=== PATIENT | female | born 1955 ===

== ENCOUNTER 2017-08-22 17:13 | Observation (INO) | payer MEDICAID, OTHER ==
[2017-08-22 17:18] VITALS: BMI 32.2
[2017-08-22 18:04] LABS: BASO # 0.03 K/mm3 (0.0-2.0); BASO % 0.3 % (0.0-3.0); EOS # 0.1 (0.0-0.7); EOS % 1.5 % (1.5-5.0); GRAN # 6.01 (1.4-6.5); GRAN % 62.9 % (50.0-68.0); HEMOGLOBIN 12.9 g/dL (12.0-16.0); LYMPH # 2.9 (1.2-3.4); LYMPH % 30.8 % (22.0-35.0); MEAN CELL VOLUME 83.1 fl (80.0-105.0); MEAN CORPUSCULAR HEMOGLOBIN 27.3 pg (25.0-35.0); MEAN CORPUSCULAR HGB CONC 32.9 g/dl (31.0-37.0); MEAN PLATELET VOLUME 10.1 fl (7.0-11.0); MONO # 0.4 (0.1-0.6); MONO % 4.5 % (1.0-6.0); RBC 4.72 10^6/uL (3.5-6.1); RED CELL DISTRIBUTION WIDTH 13.3 % (11.5-14.5); WHITE BLOOD COUNT 9.6 10^3/ul (4.5-11.0)
[2017-08-22 18:17] LABS: ALB/GLOB RATIO 1.3 (1.1-1.8); ALBUMIN 4.5 g/dL (3.0-4.8); ALT/SGPT 41 U/L (7-56); AST/SGOT 34 U/L (14-36); BLOOD UREA NITROGEN 17 mg/dL (7-21); CALCIUM 10.3 mg/dL (8.4-10.5); GFR AFRICAN-AMERICAN > 60; GFR NON-AFRICAN AMERICAN > 60
[2017-08-22 18:29] LABS: TROPONIN I < 0.01 ng/mL
[2017-08-22 18:40] LABS: INR 0.96 (0.93-1.08); PARTIAL THROMBOPLASTIN TIME 28.8 Seconds (25.1-36.5); PROTHROMBIN TIME 10.9 SECONDS (9.4-12.5)
[2017-08-22 19:31] LABS: URINE BILIRUBIN NEGATIVE (NEGATIVE); URINE BLOOD NEGATIVE (NEGATIVE); URINE GLUCOSE (UA) NEGATIVE (NEGATIVE); URINE LEUKOCYTE ESTERASE SMALL Leu/uL (NEGATIVE); URINE NITRATE NEGATIVE (NEGATIVE); URINE PROTEIN NEGATIVE mg/dL (<30 mg/dL); URINE UROBILINOGEN 0.2 E.U./dL (<1 E.U./dL)
[2017-08-22 19:32] LABS: URINE APPEARANCE CLEAR (CLEAR); URINE COLOR STRAW (YELLOW)
--- NOTE | 2017-08-22 19:36 | ED PDOC ---
Arrival/HPI - General Chief Complaint: High Blood Pressure Time Seen by Provider: 08/22/17 17:38 Historian: Patient - History of Present Illness Narrative History of Present Illness (Text): 08/22/17 19:36 61yo female with PMHx of hypertension, Diabetes and hyperlipdemia who present with complaint of pressure like retro sternal chest pain since 1400. Reports chills and "not feeling fine". States she checked her BP at home and it was 150/ 90, which is high for her. also report headache and MENON. Notes that she is complaint with her medications. denies cough, recent URI, diaphoresis, LE edema , calf pain, dizziness, orthopnea, sick contact, nausea, vomiting, ripping/ tearing upper back pain. r Past Medical History - Provider Review Nursing Documentation Reviewed: Yes - Infectious Disease Hx of Infectious Diseases: None - Cardiac Hx Atrial Fibrillation: No Hx Congestive Heart Failure: No Hx Hypertension: Yes Hx Pacemaker: No - Pulmonary Hx Asthma: Yes Hx Chronic Obstructive Pulmonary Disease (COPD): No - Neurological Hx Seizures: No - HEENT Hx HEENT Disorder: No - Renal Hx Renal Disorder: No - Endocrine/Metabolic Hx Diabetes Mellitus Type 2: Yes - Hematological/Oncological Hx Blood Disorders: No - Integumentary Hx Dermatological Disorder: No - Musculoskeletal/Rheumatological Hx Arthritis: Yes (OSTEOARTHRITIS) Hx Osteoporosis: Yes - Gastrointestinal Hx Gastrointestinal Disorders: No - Genitourinary/Gynecological Hx Genitourinary Disorders: No - Psychiatric Hx Emotional Abuse: No Hx Physical Abuse: No Hx Substance Use: No - Surgical History Hx Coronary Artery Bypass Graft: No - Anesthesia Hx Anesthesia: Yes Hx Anesthesia Reactions: No - Suicidal Assessment Feels Threatened In Home Enviroment: No Family/Social History - Physician Review Nursing Documentation Reviewed: Yes Family/Social History: Unknown Family HX Smoking Status: Never Smoked Hx Alcohol Use: No Hx Substance Use: No Allergies/Home Meds Allergies/Adverse Reactions: Allergies No Known Allergies Allergy (Verified 05/05/16 21:58) Home Medications: Home Meds Medication Instructions Recorded Confirmed Alendronate Sodium [Binosto] 70 mg PO Q7D 05/17/16 08/22/17 Atorvastatin [Lipitor] 1 tab PO HS 08/22/17 08/22/17 Cholecalciferol (Vitamin D3) 1 cap PO DAILY 08/22/17 08/22/17 [Vitamin D3] Fluticasone Furoate [Arnuity 1 puff IH BID 08/22/17 08/22/17 Ellipta] Montelukast [Singulair] 1 tab PO HS 08/22/17 08/22/17 metFORMIN [glucOPHAGE] 1 tab PO BID 08/22/17 08/22/17 Review of Systems - Physician Review All systems were reviewed & negative as marked: Yes - Review of Systems Constitutional: Normal Eyes: Normal ENT: Normal Respiratory: Normal Cardiovascular: Chest Pain, MENON. absent: Palpitations, Edema, Calf Pain, Orthopnea Gastrointestinal: Normal Genitourinary Female: Normal Musculoskeletal: Normal Skin: Normal Neurological: Headache. absent: Dizziness, Focal Weakness, Gait Changes Endocrine: Normal Hemo/Lymphatic: Normal Psychiatric: Normal Physical Exam Vital Signs Reviewed: Yes Vital Signs Temp Pulse Resp BP Pulse Ox 08/22/17 17:20 98.3 F 86 18 133/84 97 Temperature: Afebrile Blood Pressure: Normal Pulse: Regular Respiratory Rate: Normal Appearance: Positive for: Well-Appearing, Non-Toxic, Comfortable Pain Distress: None Mental Status: Positive for: Alert and Oriented X 3 Finger Stick Blood Glucose: 117 - Systems Exam Head: Present: Atraumatic, Normocephalic Pupils: Present: PERRL Extroacular Muscles: Present: EOMI Conjunctiva: Present: Normal Mouth: Present: Moist Mucous Membranes Neck: Present: Normal Range of Motion Respiratory/Chest: Present: Clear to Auscultation, Good Air Exchange. No: Respiratory Distress, Accessory Muscle Use, Wheezes, Decreased Breath Sounds, Rales, Retracting, Rhonchi Cardiovascular: Present: Regular Rate and Rhythm, Normal S1, S2. No: Murmurs Abdomen: Present: Normal Bowel Sounds. No: Tenderness, Distention, Peritoneal Signs Back: Present: Normal Inspection Upper Extremity: Present: Normal Inspection. No: Cyanosis, Edema Lower Extremity: Present: Normal Inspection. No: Edema Neurological: Present: GCS=15, CN II-XII Intact, Speech Normal, Motor Func Grossly Intact, Normal Sensory Function, Normal Cerebellar Funct, Gait Normal, Memory Normal, Other (No focal neurological deficit) Skin: Present: Warm, Dry, Normal Color. No: Rashes Psychiatric: Present: Alert, Oriented x 3, Normal Insight, Normal Concentration Medical Decision Making ED Course and Treatment: 08/22/17 19:52 Pt in ED for stated history. She was hemodynamically stable. EKG NSR with normal interval @79bpm. First CE is negative. Pt however have a cardiac risk factor secondary to her co morbidities. she will be placed in OBS for further evaluation. Case was VICTOR MANUEL Ortega who is covering Dr. Blunt and he wants pt to be admitted to the hospitalist Case was DW Dr. Carlson and he accepted pt for admission. Result and plan was DW the pt and she agreed. - Lab Interpretations Lab Results: 08/22/17 17:55 08/22/17 17:55 Lab Results 08/22/17 19:16: Urine Color Straw, Urine Appearance Clear, Urine pH 7.0, Ur Specific [place] 1.010, Urine Protein Negative, Urine Glucose (UA) Negative, Urine Ketones Negative, Urine Blood Negative, Urine Nitrate Negative, Urine Bilirubin Negative, Urine Urobilinogen 0.2, Ur Leukocyte Esterase Small H, Urine RBC Negative, Urine WBC 2 - 5, Ur Epithelial Cells 3 - 4, Urine Bacteria Few 08/22/17 17:55: D-Dimer, Quantitative < 200 08/22/17 17:55: Sodium 140, Potassium 3.8, Chloride 100, Carbon Dioxide 29, Anion Gap 15, BUN 17, Creatinine 0.6 L, Est GFR ( Amer) > 60, Est GFR ( Non-Af Amer) > 60, Random Glucose 124 H, Calcium 10.3, Magnesium 2.0, Total Bilirubin 0.5, AST 34, ALT 41, Alkaline Phosphatase 94, Lactate Dehydrogenase 421, Total Creatine Kinase 56, Troponin I < 0.01, Total Protein 7.9, Albumin 4.5 , Globulin 3.4, Albumin/Globulin Ratio 1.3 08/22/17 17:55: PT 10.9, INR 0.96, APTT 28.8 08/22/17 17:55: WBC 9.6, RBC 4.72, Hgb 12.9, Hct 39.2, MCV 83.1, MCH 27.3, MCHC 32.9, RDW 13.3, Plt Count 280, MPV 10.1, Gran % 62.9, Lymph % (Auto) 30.8, [place] % (Auto) 4.5, Eos % (Auto) 1.5, Baso % (Auto) 0.3, Gran # 6.01, Lymph # 2.9, [place] # 0.4, Eos # 0.1, Baso # 0.03 08/22/17 17:53: POC Glucose (mg/dL) 117 H - RAD Interpretation Radiology Orders: 08/22/17 18:26 CHEST PORTABLE [RAD] Stat - Medication Orders Current Medication Orders: Atorvastatin Calcium (Lipitor) 20 mg PO HS [facility] Cholecalciferol (Vitamin D) 2,000 intlu PO DAILY [facility] Famotidine (Pepcid) 20 mg PO 1000,2200 [facility] Heparin Sodium (Porcine) (Heparin) 5,000 units SC Q8 [facility] PRN Reason: Protocol Hydrochlorothiazide (Microzide) 12.5 mg PO DAILY [facility] Ibuprofen (Motrin Tab) 600 mg PO Q6H PRN PRN Reason: Pain, Mild (1-3) Insulin Human Regular (Humulin R Low) 0 units SC ACHS [facility] PRN Reason: Protocol Montelukast Sodium (Singulair) 10 mg PO HS [facility] Non-Formulary Medication (Fluticasone Furoate [Arnuity Ellipta]) 1 puff IH BID [facility] Disposition/Present on Arrival - Present on Arrival Any Indicators Present on Arrival: No History of DVT/PE: No History of Uncontrolled Diabetes: No Urinary Catheter: No History of Decub. Ulcer: No History Surgical Site Infection Following: None - Disposition Have Diagnosis and Disposition been Completed?: Yes Diagnosis: Chest pain Disposition: HOSPITALIZED Disposition Time: 19:45 Patient Plan: Admission Condition: FAIR Discharge Instructions (ExitCare): Chest Pain (ED) Forms: [employer] (Greenlandic)
[2017-08-22 19:38] LABS: URINE BACTERIA FEW (NEG); URINE RBC NEGATIVE /hpf (0-2)
[2017-08-22] MEDS ORDERED: Metoprolol 1 mg/ml Inj IVP PRN (20:44)
--- NOTE | 2017-08-22 21:00 | CP.PCM.HP ---
<Vitaliy Sullivan - Last Filed: 08/22/17 20:46> History of Present Illness - History of Present Illness History of Present Illness: Vitaliy Sullivan DO PGY1 - Internal Medicine H&P CC: Chest pain HPI: 61 yo F with PMH of diabetes, HTN, high cholesterol, lung nodule, and "asthma" diagnosed one year ago, presents to the ER complaining of chest pain. Pain started last Friday (5 days ago), is intermittent, tight and burning in nature, nonradiating, exacerbated by deep inhalation and stress, no remitting factors. Pain started when she was laying down. Pain is associated with feeling very cold. She had this pain previously and was worked up for cardiac etiologies , which was reportedly negative. She has not tried anything for this pain. She does not currently have the pain. She denies diaphoresis, palpitations, shortness of breath, exertional chest pain, cough, sick contacts, leg swelling, neck/arm/jaw pain. She admits to shortness of breath after walking to blocks or taking 4-5 steps up stairs, which improves with rest; she has had this for the past year. 12 point ROS was obtained and was negative except as above PMH: diabetes, HTN, high cholesterol, lung nodule, and "asthma" diagnosed one year ago PSH: Denies Soc: denies tobacco, alcohol, or illicits FHx: Mother and father with "heart disease" and "open heart surgery"; multiple family members with diabetes All: NKDA PMD: Merlene Pulmonologis: Leti Urban Present on Admission - Present on Admission Any Indicators Present on Admission: No Past Patient History - Infectious Disease Hx of Infectious Diseases: None - Past Medical History & Family History Past Medical History?: Yes - Past Social History Smoking Status: Never Smoked - CARDIAC Hx Atrial Fibrillation: No Hx Congestive Heart Failure: No Hx Hypertension: Yes Hx Pacemaker: No - PULMONARY Hx Asthma: Yes Hx Chronic Obstructive Pulmonary Disease (COPD): No - NEUROLOGICAL Hx Seizures: No - HEENT Hx HEENT Problems: No - RENAL Hx Chronic Kidney Disease: No - ENDOCRINE/METABOLIC Hx Diabetes Mellitus Type 2: Yes - HEMATOLOGICAL/ONCOLOGICAL Hx Blood Disorders: No - INTEGUMENTARY Hx Dermatological Problems: No - MUSCULOSKELETAL/RHEUMATOLOGICAL Hx Arthritis: Yes (OSTEOARTHRITIS) Hx Osteoporosis: Yes - GASTROINTESTINAL Hx Gastrointestinal Disorders: No - GENITOURINARY/GYNECOLOGICAL Hx Genitourinary Disorders: No - PSYCHIATRIC Hx Emotional Abuse: No Hx Physical Abuse: No Hx Substance Use: No - SURGICAL HISTORY Hx Coronary Artery Bypass Graft: No - ANESTHESIA Hx Anesthesia: Yes Hx Anesthesia Reactions: No Meds Allergies/Adverse Reactions: Allergies Allergy/AdvReac Type Severity Reaction Status Date / Time No Known Allergies Allergy Verified 05/05/16 21:58 Physical Exam - Constitutional Appears: Non-toxic, No Acute Distress - Head Exam Head Exam: ATRAUMATIC, NORMOCEPHALIC - Eye Exam Eye Exam: EOMI, Normal appearance, PERRL - ENT Exam ENT Exam: Mucous Membranes Moist - Neck Exam Neck exam: Positive for: Normal Inspection - Respiratory Exam Respiratory Exam: Clear to Auscultation Bilateral, NORMAL BREATHING PATTERN. absent: Accessory Muscle Use, Chest Wall Tenderness, Rales, Rhonchi, Wheezes, Respiratory Distress - Cardiovascular Exam Cardiovascular Exam: REGULAR RHYTHM, +S1, +S2. absent: Tachycardia, JVD - GI/Abdominal Exam GI & Abdominal Exam: Normal Bowel Sounds, Soft, Tenderness (epigastric, mild) - Extremities Exam Extremities exam: Positive for: normal capillary refill, pedal pulses present. Negative for: calf tenderness, pedal edema - Neurological Exam Neurological exam: Alert, CN II-XII Intact, Oriented x3 - Psychiatric Exam Psychiatric exam: Normal Affect, Normal Mood - Skin Skin Exam: Dry, Intact, Normal Color, Warm Results - Vital Signs Recent Vital Signs: Last Vital Signs Temp 98.3 F 08/22/17 17:20 Pulse 79 08/22/17 20:35 Resp 17 08/22/17 20:35 BP 151/75 H 08/22/17 20:35 Pulse Ox 98 08/22/17 20:35 - Labs Result Diagrams: 08/22/17 17:55 08/22/17 17:55 Assessment & Plan - Assessment and Plan (Free Text) Assessment: 61 yo F with PMH of DM, HTN, HLD, asthma, pulmonary nodule, and osteoporosis presents complaining of intermittent, nonexertional, atypical chest pain for the past 5 days. Plan Chest pain - Initial troponin negative; EKG NSR; CXR unremarkable (pending official read) - Continue to trend troponins; repeat EKG in AM - BNP ordered, pending - Ordered ASA 325 stat and 81mg daily - Continue home lipitor - Motrin for mild pain, Morphine for severe pain - Lipid panel, TSH, A1c ordered with AM labs - Echo ordered to r/o wall motion abnormalities and assess LVEF; prior echo from 2016 unremarkable - Exercise stress test 2016 normal - Cardio consult requested, appreciate recs Diabetes - Hold oral hypoglycemics - Start insulin sliding scale low with accucheck ACHS - A1c ordered HTN - Resume home HCTZ - Patient was normotensive on admission; became slightly hypertensive after initial encounter, given one time dose of lopressor 25mg PO - Lopressor 5mg IVP for SBP >180 or HR >120 Hyperlipidemia - Continue home statin, as above - Lipid panel ordered with AM labs Pulmonary nodule - Patient had follow up chest CT done 07/31/2017; showed stable 6mm solitary lung nodule Asthma - Patient reports new diagnosis of asthma one year ago; has not been taking all of her medications as prescribed because she hasn't been coughing as much recently - Continue home singulair and arnuity ellipta GI/DVT Ppx: Pepcid and Heparin Patient seen, discussed, and reviewed with attending Dr. Carlson <Fermín Carlson - Last Filed: 08/22/17 22:53> Results - Vital Signs Recent Vital Signs: Last Vital Signs Temp 98 F 08/22/17 21:16 Pulse 74 08/22/17 22:18 Resp 17 08/22/17 21:16 BP 150/78 08/22/17 22:18 Pulse Ox 98 08/22/17 20:49 - Labs Result Diagrams: 08/22/17 17:55 08/22/17 17:55 Labs: Laboratory Results - last 24 hr 08/22/17 22:13 POC Glucose (mg/dL) 93 Attending/Attestation - Attestation I have personally seen and examined this patient.: Yes I have fully participated in the care of the patient.: Yes I have reviewed all pertinent clinical information: Yes Notes (Text): 08/22/17 22:48 Patient was seen when she was in [id number]. History obtained with help of daughter Deena. Agree with history, physical examination, assessment and plan. Complained of some palpitation and sob also. Uses alcohol occasionally. Gives history of cataract in both eyes, has bifocal eye glasses. Has difficulty in hearing in both ears. Has history of frequent common colds, EDIS , is on CPAP at home sometimes, chest pain twice in past for which she went to hospital, GERD, colonoscopy, arthritis, right knee surgery, right foot abscess drainage surgery , anxiety, family history of bypass surgery (Mother and father.)
[2017-08-22] MEDS ORDERED: Morphine 2 mg/ml ISec IVP PRN (21:18)
[2017-08-22] MEDS ORDERED: Pneumococcal 23-Valent Vaccine IM ONE (21:34)
[2017-08-22] MEDS ORDERED: Influenza Vaccine 60 mcg/0.5 mL SYR (4YR UP) IM ONE (21:34)
[2017-08-22] MEDS ORDERED: Morphine 5 MG/ML SYRINGE IVP PRN ×2 (21:37→21:39)
[2017-08-22] MEDS: Insulin Reg-LOW-Coverage SC SCH (22:20)
[2017-08-23 01:11] VITALS: RESP 20
[2017-08-23] MEDS: Insulin Reg-LOW-Coverage SC SCH ×2 (08:10→11:34)
[2017-08-23 08:23] LABS: BASO # 0.02 K/mm3 (0.0-2.0); BASO % 0.3 % (0.0-3.0); EOS # 0.2 (0.0-0.7); EOS % 2.2 % (1.5-5.0); GRAN # 4.25 (1.4-6.5); GRAN % 54.6 % (50.0-68.0); LYMPH % 38.3 % (22.0-35.0); MEAN CELL VOLUME 83.9 fl (80.0-105.0); MEAN CORPUSCULAR HEMOGLOBIN 26.8 pg (25.0-35.0); MEAN CORPUSCULAR HGB CONC 31.9 g/dl (31.0-37.0); MEAN PLATELET VOLUME 10.4 fl (7.0-11.0); MONO # 0.4 (0.1-0.6); MONO % 4.6 % (1.0-6.0); RBC 4.48 10^6/uL (3.5-6.1); RED CELL DISTRIBUTION WIDTH 13.4 % (11.5-14.5); WHITE BLOOD COUNT 7.8 10^3/ul (4.5-11.0)
--- NOTE | 2017-08-23 08:24 | RAD ---
HISTORY: chest pain COMPARISON: No prior. FINDINGS: LUNGS: The lungs are well inflated and clear. PLEURA: No significant pleural effusion identified, no pneumothorax apparent. CARDIOVASCULAR: Normal. OSSEOUS STRUCTURES: No significant abnormalities. VISUALIZED UPPER ABDOMEN: Normal. OTHER FINDINGS: None. IMPRESSION: No active pulmonary disease.
[2017-08-23 08:26] VITALS: BP 107/65; TEMP 97.8; O2SAT 97
[2017-08-23 08:29] LABS: ALB/GLOB RATIO 1.3 (1.1-1.8); ALBUMIN 4.3 g/dL (3.0-4.8); ALT/SGPT 43 U/L (7-56); AST/SGOT 32 U/L (14-36); BLOOD UREA NITROGEN 20 mg/dL (7-21); CALCIUM 9.6 mg/dL (8.4-10.5); GFR AFRICAN-AMERICAN > 60; GFR NON-AFRICAN AMERICAN > 60; HDL CHOLESTEROL 49 mg/dL (29-60); MAGNESIUM 2.1 mg/dL (1.7-2.2)
[2017-08-23 08:39] LABS: LDL CHOLESTEROL 59 mg/dL (0-129); TROPONIN I < 0.01 ng/mL
[2017-08-23] MEDS ORDERED: Cholecalciferol 1,000 INTLU TAB PO SCH (10:00)
[2017-08-23] MEDS ORDERED: Non Formulary Medication (Fluticasone Furoate [Arnuity Ellipta] 1 PUFF) IH SCH (10:00)
[2017-08-23 11:31] VITALS: PULSE 85
--- NOTE | 2017-08-23 13:37 | CP.PCM.DIS ---
<Mik Valencia - Last Filed: 08/23/17 14:20> Provider - Provider Date of Admission: 08/22/17 19:31 Attending physician: Bisi Yuen MD Primary care physician: Dr. Call Consults: Cardio: Ellen Time Spent in preparation of Discharge (in minutes): 30 Diagnosis - Discharge Diagnosis (1) HTN (hypertension) Status: Chronic Priority: Medium (2) Diabetes Status: Chronic Priority: High (3) HLD (hyperlipidemia) Status: Chronic Priority: Medium (4) Chest pain Status: Resolved Priority: High Hospital Course - Lab Results Lab Results: Most Recent Lab Values WBC 7.8 10^3/ul (4.5-11.0) 08/23/17 06:55 RBC 4.48 10^6/uL (3.5-6.1) 08/23/17 06:55 Hgb 12.0 g/dL (12.0-16.0) 08/23/17 06:55 Hct 37.6 % (36.0-48.0) 08/23/17 06:55 MCV 83.9 fl (80.0-105.0) 08/23/17 06:55 MCH 26.8 pg (25.0-35.0) 08/23/17 06:55 MCHC 31.9 g/dl (31.0-37.0) 08/23/17 06:55 RDW 13.4 % (11.5-14.5) 08/23/17 06:55 Plt Count 278 10^3/uL (120.0-450.0) 08/23/17 06:55 MPV 10.4 fl (7.0-11.0) 08/23/17 06:55 Gran % 54.6 % (50.0-68.0) 08/23/17 06:55 Lymph % (Auto) 38.3 % (22.0-35.0) H 08/23/17 06:55 [facility] [place] % (Auto) 4.6 % (1.0-6.0) 08/23/17 06:55 Eos % (Auto) 2.2 % (1.5-5.0) 08/23/17 06:55 Baso % (Auto) 0.3 % (0.0-3.0) 08/23/17 06:55 Gran # 4.25 (1.4-6.5) 08/23/17 06:55 Lymph # 3.0 (1.2-3.4) 08/23/17 06:55 [facility] [place] # 0.4 (0.1-0.6) 08/23/17 06:55 Eos # 0.2 (0.0-0.7) 08/23/17 06:55 Baso # 0.02 K/mm3 (0.0-2.0) 08/23/17 06:55 PT 10.9 SECONDS (9.4-12.5) 08/22/17 17:55 INR 0.96 (0.93-1.08) 08/22/17 17:55 APTT 28.8 Seconds (25.1-36.5) 08/22/17 17:55 D-Dimer, Quantitative < 200 ng/mL (0-243) 08/22/17 17:55 Sodium 140 mmol/L (132-148) 08/23/17 06:55 Potassium 4.1 mmol/L (3.6-5.0) 08/23/17 06:55 Chloride 101 mmol/L (98-107) 08/23/17 06:55 Carbon Dioxide 28 mmol/L (21-33) 08/23/17 06:55 Anion Gap 15 (10-20) 08/23/17 06:55 BUN 20 mg/dL (7-21) 08/23/17 06:55 Creatinine 0.6 mg/dl (0.7-1.2) L 08/23/17 06:55 Est GFR ( Amer) > 60 08/23/17 06:55 Est GFR (Non-Af Amer) > 60 08/23/17 06:55 POC Glucose (mg/dL) 88 mg/dL (65-110) 08/23/17 11:25 Random Glucose 98 mg/dL (70-110) 08/23/17 06:55 Calcium 9.6 mg/dL (8.4-10.5) 08/23/17 06:55 Phosphorus 3.9 mg/dL (2.5-4.5) 08/23/17 06:55 Magnesium 2.1 mg/dL (1.7-2.2) 08/23/17 06:55 Total Bilirubin 0.7 mg/dL (0.2-1.3) 08/23/17 06:55 AST 32 U/L (14-36) 08/23/17 06:55 ALT 43 U/L (7-56) 08/23/17 06:55 Alkaline Phosphatase 92 U/L (38-126) 08/23/17 06:55 Lactate Dehydrogenase 421 U/L (333-699) 08/22/17 17:55 Total Creatine Kinase 56 U/L (35-230) 08/22/17 17:55 Troponin I < 0.01 ng/mL 08/23/17 06:55 NT-Pro-B Natriuret Pep 16.8 pg/mL (0-450) 08/22/17 18:00 Total Protein 7.5 g/dL (5.8-8.3) 08/23/17 06:55 Albumin 4.3 g/dL (3.0-4.8) 08/23/17 06:55 Globulin 3.2 gm/dL 08/23/17 06:55 Albumin/Globulin Ratio 1.3 (1.1-1.8) 08/23/17 06:55 Triglycerides 156 mg/dL (35-160) 08/23/17 06:55 Cholesterol 135 mg/dL (130-200) 08/23/17 06:55 LDL Cholesterol Direct 59 mg/dL (0-129) 08/23/17 06:55 HDL Cholesterol 49 mg/dL (29-60) 08/23/17 06:55 TSH 3rd Generation 2.89 mIU/mL (0.46-4.68) 08/23/17 06:55 Urine Color Straw (YELLOW) 08/22/17 19:16 Urine Appearance Clear (CLEAR) 08/22/17 19:16 Urine pH 7.0 (4.7-8.0) 08/22/17 19:16 Ur Specific [place] 1.010 (1.005-1.035) 08/22/17 19:16 Urine Protein Negative mg/dL (<30 mg/dL) 08/22/17 19:16 Urine Glucose (UA) Negative mg/dL (NEGATIVE) 08/22/17 19:16 Urine Ketones Negative mg/dL (NEGATIVE) 08/22/17 19:16 Urine Blood Negative (NEGATIVE) 08/22/17 19:16 Urine Nitrate Negative (NEGATIVE) 08/22/17 19:16 Urine Bilirubin Negative (NEGATIVE) 08/22/17 19:16 Urine Urobilinogen 0.2 E.U./dL (<1 E.U./dL) 08/22/17 19:16 Ur Leukocyte Esterase Small Derrick/uL (NEGATIVE) H 08/22/17 19:16 Urine RBC Negative /hpf (0-2) 08/22/17 19:16 Urine WBC 2 - 5 /hpf (0-6) 08/22/17 19:16 Ur Epithelial Cells 3 - 4 /hpf (0-5) 08/22/17 19:16 Urine Bacteria Few (NEG) 08/22/17 19:16 - Hospital Course Hospital Course: This is a 61 yo F with PMH of diabetes, HTN, high cholesterol, lung nodule, and asthma who presented to [facility] with 5x days of intermittent, tight and burning chest pain. While here, the patient had 3 negative troponins, and both her initial and repeat EKG were not indicative of acute cardiac event. No acute complaints today, including chest pain, or pain with deep respirations. The patient was also evaluated by Cardiology, who cleared her for discharge. As she had had a normal echo and stress test in 2016, no new echo was obtained. Patient was instructed to resume all home meds and take as prescribed, and to follow up with her PMD and a stranner within 1 week. Patient expressed understanding and agreement with these instructions. Patient was given an opportunity to ask questions, but had none, and was then discharged. Patient seen, reviewed, and examined with attending, Dr. Yuen. Discharge Exam - Head Exam Head Exam: ATRAUMATIC, NORMAL INSPECTION, NORMOCEPHALIC - Eye Exam Eye Exam: EOMI, Normal appearance. absent: Conjunctival injection, Scleral icterus Pupil Exam: absent: Irregular, Unequal - ENT Exam ENT Exam: Mucous Membranes Moist - Neck Exam Neck exam: Full Rom, Normal Inspection - Respiratory Exam Respiratory Exam: Clear to PA & Lateral, NORMAL BREATHING PATTERN, UNREMARKABLE. absent: Accessory Muscle Use, Chest Wall Tenderness, Decreased Breath Sounds, Prolonged Expiratory Phase, Rales, Rhonchi, Wheezes, Respiratory Distress - Cardiovascular Exam Cardiovascular Exam: REGULAR RHYTHM, RRR, +S1, +S2. absent: Bradycardia, Tachycardia, Irregular Rhythm, JVD, +S4 - GI/Abdominal Exam GI & Abdominal Exam: Normal Bowel Sounds, Soft, Unremarkable. absent: Tenderness - Rectal Exam Rectal Exam: Deferred - Extremities Exam Extremities exam: normal capillary refill, normal inspection, pedal pulses present - Neurological Exam Additional comments: awake and alert, following all commands appropriately, moving all extremities spontaneously motor grossly intact and equal bilaterally - Psychiatric Exam Psychiatric exam: Normal Affect, Normal Mood - Skin Skin Exam: Dry, Intact, Normal Color, Warm Discharge Plan - Follow Up Plan Condition: FAIR Disposition: HOME/ ROUTINE Instructions: Angina (DC), Chest Pain (DC), Asthma (DC), Heart Healthy Diet (DC ), Diabetes Mellitus Type 2 in Adults (DC), Chronic Hypertension (DC), Hyperlipidemia (DC) Additional Instructions: Please resume all home medications and take as prescribed. Please follow up with your Primary Medical Doctor and a Technical Manager (referral provided) within 1 week. If you experience worsening or new concerning symptoms, please return to the hospital. Por favor reanude todos los medicamentos caseros y tome segn lo prescrito. Por favor, saima un seguimiento con martin mdico de cabecera y un cardilogo (se proporciona pam referencia) dentro de 1 semana. Si experimenta un empeoramiento o nuevos sntomas de preocupacin, regrese al hospital. Referrals: Thomas Hughes MD [Staff Provider] - Laxmi Call MD [Family Provider] - <Bisi Yuen - Last Filed: 08/23/17 15:58> Provider - Provider Date of Admission: 08/22/17 19:31 Attending physician: Bisi Yuen MD Hospital Course - Lab Results Lab Results: Most Recent Lab Values WBC 7.8 10^3/ul (4.5-11.0) 08/23/17 06:55 RBC 4.48 10^6/uL (3.5-6.1) 08/23/17 06:55 Hgb 12.0 g/dL (12.0-16.0) 08/23/17 06:55 Hct 37.6 % (36.0-48.0) 08/23/17 06:55 MCV 83.9 fl (80.0-105.0) 08/23/17 06:55 MCH 26.8 pg (25.0-35.0) 08/23/17 06:55 MCHC 31.9 g/dl (31.0-37.0) 08/23/17 06:55 RDW 13.4 % (11.5-14.5) 08/23/17 06:55 Plt Count 278 10^3/uL (120.0-450.0) 08/23/17 06:55 MPV 10.4 fl (7.0-11.0) 08/23/17 06:55 Gran % 54.6 % (50.0-68.0) 08/23/17 06:55 Lymph % (Auto) 38.3 % (22.0-35.0) H 08/23/17 06:55 [facility] [place] % (Auto) 4.6 % (1.0-6.0) 08/23/17 06:55 Eos % (Auto) 2.2 % (1.5-5.0) 08/23/17 06:55 Baso % (Auto) 0.3 % (0.0-3.0) 08/23/17 06:55 Gran # 4.25 (1.4-6.5) 08/23/17 06:55 Lymph # 3.0 (1.2-3.4) 08/23/17 06:55 [facility] [place] # 0.4 (0.1-0.6) 08/23/17 06:55 Eos # 0.2 (0.0-0.7) 08/23/17 06:55 Baso # 0.02 K/mm3 (0.0-2.0) 08/23/17 06:55 PT 10.9 SECONDS (9.4-12.5) 08/22/17 17:55 INR 0.96 (0.93-1.08) 08/22/17 17:55 APTT 28.8 Seconds (25.1-36.5) 08/22/17 17:55 D-Dimer, Quantitative < 200 ng/mL (0-243) 08/22/17 17:55 Sodium 140 mmol/L (132-148) 08/23/17 06:55 Potassium 4.1 mmol/L (3.6-5.0) 08/23/17 06:55 Chloride 101 mmol/L (98-107) 08/23/17 06:55 Carbon Dioxide 28 mmol/L (21-33) 08/23/17 06:55 Anion Gap 15 (10-20) 08/23/17 06:55 BUN 20 mg/dL (7-21) 08/23/17 06:55 Creatinine 0.6 mg/dl (0.7-1.2) L 08/23/17 06:55 Est GFR ( Amer) > 60 08/23/17 06:55 Est GFR (Non-Af Amer) > 60 08/23/17 06:55 POC Glucose (mg/dL) 88 mg/dL (65-110) 08/23/17 11:25 Random Glucose 98 mg/dL (70-110) 08/23/17 06:55 Calcium 9.6 mg/dL (8.4-10.5) 08/23/17 06:55 Phosphorus 3.9 mg/dL (2.5-4.5) 08/23/17 06:55 Magnesium 2.1 mg/dL (1.7-2.2) 08/23/17 06:55 Total Bilirubin 0.7 mg/dL (0.2-1.3) 08/23/17 06:55 AST 32 U/L (14-36) 08/23/17 06:55 ALT 43 U/L (7-56) 08/23/17 06:55 Alkaline Phosphatase 92 U/L (38-126) 08/23/17 06:55 Lactate Dehydrogenase 421 U/L (333-699) 08/22/17 17:55 Total Creatine Kinase 56 U/L (35-230) 08/22/17 17:55 Troponin I < 0.01 ng/mL 08/23/17 06:55 NT-Pro-B Natriuret Pep 16.8 pg/mL (0-450) 08/22/17 18:00 Total Protein 7.5 g/dL (5.8-8.3) 08/23/17 06:55 Albumin 4.3 g/dL (3.0-4.8) 08/23/17 06:55 Globulin 3.2 gm/dL 08/23/17 06:55 Albumin/Globulin Ratio 1.3 (1.1-1.8) 08/23/17 06:55 Triglycerides 156 mg/dL (35-160) 08/23/17 06:55 Cholesterol 135 mg/dL (130-200) 08/23/17 06:55 LDL Cholesterol Direct 59 mg/dL (0-129) 08/23/17 06:55 HDL Cholesterol 49 mg/dL (29-60) 08/23/17 06:55 TSH 3rd Generation 2.89 mIU/mL (0.46-4.68) 08/23/17 06:55 Urine Color Straw (YELLOW) 08/22/17 19:16 Urine Appearance Clear (CLEAR) 08/22/17 19:16 Urine pH 7.0 (4.7-8.0) 08/22/17 19:16 Ur Specific [place] 1.010 (1.005-1.035) 08/22/17 19:16 Urine Protein Negative mg/dL (<30 mg/dL) 08/22/17 19:16 Urine Glucose (UA) Negative mg/dL (NEGATIVE) 08/22/17 19:16 Urine Ketones Negative mg/dL (NEGATIVE) 08/22/17 19:16 Urine Blood Negative (NEGATIVE) 08/22/17 19:16 Urine Nitrate Negative (NEGATIVE) 08/22/17 19:16 Urine Bilirubin Negative (NEGATIVE) 08/22/17 19:16 Urine Urobilinogen 0.2 E.U./dL (<1 E.U./dL) 08/22/17 19:16 Ur Leukocyte Esterase Small Derrick/uL (NEGATIVE) H 08/22/17 19:16 Urine RBC Negative /hpf (0-2) 08/22/17 19:16 Urine WBC 2 - 5 /hpf (0-6) 08/22/17 19:16 Ur Epithelial Cells 3 - 4 /hpf (0-5) 08/22/17 19:16 Urine Bacteria Few (NEG) 08/22/17 19:16 Attending/Attestation - Attestation I have personally seen and examined this patient.: Yes I have fully participated in the care of the patient.: Yes I have reviewed all pertinent clinical information, including history, physical exam and plan: Yes Notes (Text): 08/23/17 15:50 Patient was seen and examined with medical billing instructor. Agreed with assessment and plan. 61 yrs old female was admitted with atypical chest pain, EKG is negative for ischemic changes, serial troponins are normal.Patient was evaluated by cardiology, no further work inpatient work was recommended..Patient will be discharged home and will follow up with PCP. Management plan was discussed in detail with patient. Education was provided.
--- NOTE | 2017-08-23 15:51 | CARD ---
APPROVED REPORT EKG Measurement Heart [id number] <Conclusion> Normal sinus rhythm Normal ECG
--- NOTE | 2017-08-23 16:05 | CARD ---
APPROVED REPORT EKG Measurement Heart [id number] <Conclusion> Normal sinus rhythm Normal ECG
--- NOTE | 2017-08-23 22:41 | CON ---
DATE: 08/23/2017 HISTORY: The patient is a 61-year-old woman who presented to the emergency room with atypical chest pain. She suffers from diabetes mellitus, hypertension and hypercholesterolemia. There was a question of asthma in the past. This morning, the patient is completely asymptomatic. No shortness of breath, no chest pain. She had a stress test that was performed 1 year ago with similar symptoms, which were negative. SOCIAL HISTORY: The patient does not smoke. REVIEW OF SYSTEMS: All unremarkable. PHYSICAL EXAMINATION: VITAL SIGNS: Blood pressure 107/65, heart rate in the 80s. NECK: Negative JVD. LUNGS: Without rales. HEART: Reveals S1, S2. EXTREMITIES: Without edema. EKG is unremarkable. Hemoglobin is 12. Chemistries, troponins are negative x2. IMPRESSION: 1. Atypical chest pain. 2. No evidence for acute coronary syndrome. 3. Diabetes mellitus. 4. Hypertension. 5. Hypercholesterolemia. Given these findings, there is no evidence for acute coronary syndrome. There is no evidence for active cardiac disease. We will discontinue telemetry today. In the morning, we will refer the case back to Dr. Hughes for continued care. Jeremiah Longo MD
== END 2017-08-23 15:02 | disposition home or self-care (01) ==
LOC: ED 17:13 → ERH 19:31 → 3RNO 20:52
PROVIDERS: ADMIT Internal Medicine; ATTEND Internal Medicine
DX: R07.89 Other chest pain (principal); E11.9 Type 2 diabetes mellitus without complications; I10 Essential (primary) hypertension; E78.00 Pure hypercholesterolemia, unspecified; E78.5 Hyperlipidemia, unspecified; J45.909 Unspecified asthma, uncomplicated; M81.0 Age-related osteoporosis without current pathological fracture; Z82.49 Family history of ischemic heart disease and other diseases of the circulatory system; Z83.3 Family history of diabetes mellitus; M19.90 Unspecified osteoarthritis, unspecified site; R40.2412 Glasgow coma scale score 13-15, at arrival to emergency department; R91.1 Solitary pulmonary nodule; G47.33 Obstructive sleep apnea (adult) (pediatric); K21.9 Gastro-esophageal reflux disease without esophagitis; F41.9 Anxiety disorder, unspecified
CPT/HCPCS: 36415; 71045; 80053; 80061; 81001; 82550; 82948; 83036; 83615; 83735; 83880; 84100; 84443; 84484; 85025; 85378; 85610; 85730; 87086; 93005; 99285; G0378; J1644

== ENCOUNTER 2018-07-06 18:13 | Emergency (ER) | payer OTHER ==
[2018-07-06 18:59] VITALS: BMI 31.7
--- NOTE | 2018-07-06 19:59 | ED PDOC ---
Arrival/HPI - General Chief Complaint: Cough, Cold, Congestion Time Seen by Provider: 07/06/18 18:21 Historian: Patient, Family - History of Present Illness Narrative History of Present Illness (Text): 07/06/18 19:58 62-year-old female with a history of diabetes presents today with a 4 to five- day history of cough nasal congestion sore throat. Patient states the cough is productive with white sputum. Patient denies fevers at home. Complaining of occasional chills. Denies abdominal pain. Denies shortness of breath but states that she does have occasional pain in the back with coughing and occasional pain to the chest only with cough. patient states she has a history of asthma. Denies use of nebulizer at home. Positive sick contacts. No medications have been taken at home. No other complaints Past Medical History - Provider Review Nursing Documentation Reviewed: Yes - Travel History Have you recently traveled outside [place] w/in the past 3 mons?: No - Infectious Disease Hx of Infectious Diseases: None - Cardiac Hx Cardiac Disorders: Yes Hx Hypertension: Yes - Pulmonary Hx Respiratory Disorders: Yes Hx Asthma: Yes - Neurological Hx Neurological Disorder: No - HEENT Hx HEENT Disorder: No - Renal Hx Renal Disorder: No - Endocrine/Metabolic Hx Endocrine Disorders: Yes Hx Diabetes Mellitus Type 2: Yes - Hematological/Oncological Hx Blood Disorders: No - Integumentary Hx Dermatological Disorder: No - Musculoskeletal/Rheumatological Hx Musculoskeletal Disorders: Yes Hx Arthritis: Yes (OSTEOARTHRITIS) Hx Osteoporosis: Yes - Gastrointestinal Hx Gastrointestinal Disorders: No - Genitourinary/Gynecological Hx Genitourinary Disorders: No - Psychiatric Hx Psychophysiologic Disorder: No Hx Substance Use: No - Surgical History Hx Coronary Artery Bypass Graft: No - Anesthesia Hx Anesthesia: Yes Hx Anesthesia Reactions: No - Suicidal Assessment Feels Threatened In Home Enviroment: No Family/Social History - Physician Review Nursing Documentation Reviewed: Yes Family/Social History: Unknown Family HX Smoking Status: Never Smoked Hx Alcohol Use: No Hx Substance Use: No Allergies/Home Meds Allergies/Adverse Reactions: Allergies No Known Allergies Allergy (Verified 07/06/18 18:46) Home Medications: Home Meds Medication Instructions Recorded Confirmed Alendronate Sodium [Binosto] 70 mg PO Q7D 05/17/16 07/06/18 Atorvastatin [Lipitor] 20 tab PO HS 08/22/17 07/06/18 Cholecalciferol (Vitamin D3) 1 cap PO DAILY 08/22/17 07/06/18 [Vitamin D3] Fluticasone Furoate [Arnuity 1 puff IH BID 08/22/17 07/06/18 Ellipta] Montelukast [Singulair] 10 tab PO HS 08/22/17 07/06/18 metFORMIN [glucOPHAGE] 500 tab PO BID 08/22/17 07/06/18 Review of Systems - Review of Systems Constitutional: absent: Fevers ENT: Sore Throat, Sinus Congestion Respiratory: Cough, Sputum. absent: SOB Cardiovascular: Chest Pain (only with cough). absent: Palpitations Gastrointestinal: absent: Abdominal Pain, Nausea, Vomiting Musculoskeletal: Back Pain. absent: Arthralgias, Neck Pain Skin: Rash, Pruritis Neurological: absent: Headache, Dizziness Psychiatric: absent: Anxiety, Depression Physical Exam Vital Signs Reviewed: Yes Vital Signs Temp Pulse Resp BP Pulse Ox 07/06/18 18:48 98.8 F 92 H 19 151/74 H 95 Temperature: Afebrile Blood Pressure: Hypertensive Pulse: Regular Respiratory Rate: Normal Appearance: Positive for: Well-Appearing, Non-Toxic, Comfortable Pain Distress: None Mental Status: Positive for: Alert and Oriented X 3 - Systems Exam Head: Present: Atraumatic Extroacular Muscles: Present: EOMI Conjunctiva: Present: Normal Ears: Present: NORMAL TM. No: Erythema Mouth: Present: Moist Mucous Membranes. No: Drooling, Trismus Pharnyx: Present: Normal. No: ERYTHEMA, EXUDATE, TONSILS ENLARGED, Peritonsilar Swelling, Uvular Deviation, Muffled/Hoarse Voice, Strider, Soft Palate/Uvular Edema Nose (External): Present: Atraumatic Nose (Internal): Present: Normal Inspection, Clear Mucous. No: Septal Hematoma Neck: Present: Normal Range of Motion, Trachea Midline Respiratory/Chest: Present: Clear to Auscultation, Good Air Exchange. No: Respiratory Distress, Accessory Muscle Use, Wheezes, Retracting, Rhonchi, Tachypneic Cardiovascular: Present: Regular Rate and Rhythm Abdomen: No: Tenderness Lower Extremity: No: Edema Neurological: Present: GCS=15 Skin: Present: Warm, Dry, Normal Color. No: Rashes Psychiatric: Present: Alert, Oriented x 3 Medical Decision Making ED Course and Treatment: 07/06/18 20:04 Patient is nontoxic well-appearing in no distress. Vital signs are stable. cxr; wnl EKG shows normal sinus rhythm at [address] elevations QTC 435 normal axis rapid flu: wnl albuterol Zithromax I advised follow up with primary care physician within the next 2 days. I advised increase fluids and return if symptoms worsen persist or if new symptoms develop. Patient verbalizes understanding of discharge instructions and need for immediate followup. all aspects of this case were discussed the attending of record. IMPRESSION; cough Motrin one tablet every 6 hours as needed for pain/fever reduction Zithromax one tablet once daily x4 days FLonase; 2 sprays each nostril once daily. albuterol; 3 times daily x as needed for cough. Increase fluids Followup with primary care physician the next 2 days Return if symptoms worsen persist or if new symptoms develop Reassessment Condition: Re-examined, Improved - RAD Interpretation Radiology Orders: 07/06/18 19:29 CHEST TWO VIEWS (PA/LAT) [RAD] Stat Disposition/Present on Arrival - Present on Arrival Any Indicators Present on Arrival: No History of DVT/PE: No History of Uncontrolled Diabetes: No Urinary Catheter: No History of Decub. Ulcer: No History Surgical Site Infection Following: None - Disposition Have Diagnosis and Disposition been Completed?: Yes Diagnosis: Cough Disposition: HOME/ ROUTINE Disposition Time: 21:50 Patient Plan: Discharge Condition: GOOD Discharge Instructions (ExitCare): Cough in Adults Additional Instructions: Motrin one tablet every 6 hours as needed for pain/fever reduction Zithromax one tablet once daily x4 days FLonase; 2 sprays each nostril once daily. albuterol; 3 times daily x as needed for cough. Increase fluids Followup with primary care physician the next 2 days Return if symptoms worsen persist or if new symptoms develop Prescriptions: Albuterol HFA [Ventolin HFA 90 mcg/actuation (8 g)] 2 puff IH [id number] PRN #1 inhaler PRN Reason: Cough Albuterol 0.083% [Albuterol 0.083% Inhal Cha (2.5 mg/3 ml) UD] 1 vial IH TID PRN #1 packet PRN Reason: Cough Azithromycin [Zithromax] 250 mg PO DAILY #4 tab Fluticasone Nasal [Flonase] 2 spr NS DAILY #1 spr Ibuprofen [Motrin] 600 mg PO Q6H PRN #20 tab PRN Reason: pain/fever reduction Referrals: Jocelyne Beckwith MD [Medical Doctor] - Follow up with primary [facility] [facility] [Outside] - Follow up with primary Forms: [employer] (Jordanian), WORK NOTE
[2018-07-06 21:15] VITALS: RESP 18; TEMP 98.5
[2018-07-06] MEDS ORDERED: Albuterol 0.083% Inhal Sol (2.5 mg/3 mL) UD IH STA (21:35)
[2018-07-06 22:14] VITALS: BP 121/61; PULSE 78; O2SAT 100
--- NOTE | 2018-07-07 09:10 | CARD ---
APPROVED REPORT Date of service: 07/06/2018 EKG Measurement Heart [id number] <Conclusion> Normal sinus rhythm Minimal voltage criteria for LVH, may be normal variant Borderline ECG
--- NOTE | 2018-07-07 11:32 | RAD ---
Date of service: 07/06/2018 HISTORY: cough COMPARISON: 08/22/2017 TECHNIQUE: Chest PA and lateral FINDINGS: LUNGS: No active pulmonary disease. PLEURA: No significant pleural effusion identified. No pneumothorax apparent. CARDIOVASCULAR: No aortic atherosclerotic calcification present. Normal cardiac size. No pulmonary vascular congestion. OSSEOUS STRUCTURES: No significant abnormalities. Stable thoracolumbar scoliosis VISUALIZED UPPER ABDOMEN: Normal. OTHER FINDINGS: None. IMPRESSION: No active disease. No significant interval change compared to the prior examination(s).
== END 2018-07-06 22:45 | disposition home or self-care (01) ==
LOC: ED 18:13
DX: R05 Cough (principal); I10 Essential (primary) hypertension

== ENCOUNTER 2018-11-09 08:53 | Emergency (ER) | payer OTHER ==
[2018-11-09 09:13] VITALS: BMI 34.2
[2018-11-09 09:18] VITALS: RESP 18; TEMP 98.7; O2SAT 96
--- NOTE | 2018-11-09 09:22 | ED PDOC ---
Arrival/HPI - General Time Seen by Provider: 11/09/18 09:00 Historian: Patient - History of Present Illness Narrative History of Present Illness (Text): 11/09/18 09:16 62 year old female, with past medical history of diabetes, HTN, and high cholesterol, presents to the ED for evaluation of suprapubic abdominal pain since yesterday. Patient describes a non-radiating throbbing pain without any associated constipation or diarrhea. She notes associated mild nausea, dizziness and headache since waking up at 5 am this morning. Patient reports dizziness was brought on by standing up too fast, similar to episodes in the past. As per patient, the dizziness feels like mild vertigo, while the headache is the worst headache she has ever felt. Patient denies any other associated somatic complaints. Patient denies any fevers, chills, chest pain, shortness of breath, dyspnea on exertion, cough, diaphoresis, vomiting, diarrhea, urinary symptoms, vaginal bleeding/ abnormal discharge, back pain, neck pain, rash or any other complaints. Time/Duration: 24 hours Symptom Onset: Gradual Symptom Course: Unchanged Quality: Throbbing Activities at Onset: Light Context: Home Past Medical History - Provider Review Nursing Documentation Reviewed: Yes - Infectious Disease Hx of Infectious Diseases: None - Reproductive Menopause: Yes - Cardiac Hx Cardiac Disorders: Yes Hx Hypertension: Yes - Pulmonary Hx Respiratory Disorders: Yes Hx Asthma: Yes - Neurological Hx Neurological Disorder: No - HEENT Hx HEENT Disorder: No - Renal Hx Renal Disorder: No - Endocrine/Metabolic Hx Endocrine Disorders: Yes Hx Diabetes Mellitus Type 2: Yes - Hematological/Oncological Hx Blood Disorders: No - Integumentary Hx Dermatological Disorder: No - Musculoskeletal/Rheumatological Hx Musculoskeletal Disorders: Yes Hx Arthritis: Yes (OSTEOARTHRITIS) Hx Osteoporosis: Yes - Gastrointestinal Hx Gastrointestinal Disorders: No - Genitourinary/Gynecological Hx Genitourinary Disorders: No - Psychiatric Hx Psychophysiologic Disorder: No Hx Substance Use: No - Surgical History Hx Coronary Artery Bypass Graft: No - Anesthesia Hx Anesthesia: Yes Hx Anesthesia Reactions: No - Suicidal Assessment Feels Threatened In Home Enviroment: No Family/Social History - Physician Review Nursing Documentation Reviewed: Yes Family/Social History: Unknown Family HX Smoking Status: Never Smoked Hx Alcohol Use: No Hx Substance Use: No Allergies/Home Meds Allergies/Adverse Reactions: Allergies No Known Allergies Allergy (Verified 07/06/18 18:46) Home Medications: Home Meds Medication Instructions Recorded Confirmed Alendronate Sodium [Binosto] 70 mg PO Q7D 05/17/16 07/06/18 Atorvastatin [Lipitor] 20 tab PO HS 08/22/17 07/06/18 Cholecalciferol (Vitamin D3) 1 cap PO DAILY 08/22/17 07/06/18 [Vitamin D3] Fluticasone Furoate [Arnuity 1 puff IH BID 08/22/17 07/06/18 Ellipta] Montelukast [Singulair] 10 tab PO HS 08/22/17 07/06/18 metFORMIN [glucOPHAGE] 500 tab PO BID 08/22/17 07/06/18 Review of Systems - Physician Review All systems were reviewed & negative as marked: Yes - Review of Systems Constitutional: absent: Fevers Eyes: absent: Vision Changes Respiratory: absent: SOB, Cough Cardiovascular: absent: Chest Pain Gastrointestinal: Abdominal Pain, Nausea. absent: Constipation, Diarrhea, Vomiting Genitourinary Female: absent: Dysuria, Hematuria, Urine Output Changes Musculoskeletal: absent: Back Pain, Neck Pain Skin: absent: Rash Neurological: Headache, Dizziness. absent: Focal Weakness, Speech Changes, Facial Droop Endocrine: absent: Diaphoresis Psychiatric: absent: Anxiety Physical Exam Temperature: Afebrile Blood Pressure: Normal Pulse: Regular Respiratory Rate: Normal Appearance: Positive for: Well-Appearing, Non-Toxic, Comfortable Pain Distress: None Mental Status: Positive for: Alert and Oriented X 3 - Systems Exam Head: Present: Atraumatic, Normocephalic Pupils: Present: PERRL Extroacular Muscles: Present: EOMI Conjunctiva: Present: Normal Ears: Present: Normal, NORMAL TM Mouth: Present: Moist Mucous Membranes Neck: Present: Normal Range of Motion. No: Meningeal Signs, MIDLINE TENDERNESS Respiratory/Chest: Present: Clear to Auscultation, Good Air Exchange. No: Respiratory Distress, Accessory Muscle Use Cardiovascular: Present: Regular Rate and Rhythm, Normal S1, S2. No: Murmurs Abdomen: Present: Tenderness (Mild suprapubic tenderness). No: Distention, Peritoneal Signs Back: Present: Normal Inspection. No: CVA Tenderness, Midline Tenderness Upper Extremity: Present: Normal Inspection, Normal ROM, NORMAL PULSES, Neurovascularly Intact. No: Cyanosis, Edema, Tenderness Lower Extremity: Present: Normal Inspection, NORMAL PULSES, Neurovascularly Intact. No: Edema, CALF TENDERNESS, Tenderness Neurological: Present: GCS=15, CN II-XII Intact, Speech Normal, Motor Func Grossly Intact, Normal Sensory Function, Normal Cerebellar Funct Skin: Present: Warm, Dry, Normal Color. No: Rashes Psychiatric: Present: Alert, Oriented x 3, Normal Insight, Normal Concentration Medical Decision Making ED Course and Treatment: 11/09/18 09:23 Impression: 62 year old female presents to the ED for evaluation of suprapubic abdominal pain, as well as dizziness and headache. Differential Diagnosis included but are not limited to UTI vs. mass. Will seek imaging and labs. Normal neuro exam, pt walking in NAD, strong steady gait. Pt in NAD. Plan: -- CT of abdomen/pelvis -- CT head -- EKG -- Labs -- Reglan -- IV Fluids -- Tylenol -- Urinalysis -- Reassess and disposition Prior Visits: Notes and results from previous visits were reviewed. Progress Notes: 11/09/18 09:54 EKG reviewed, shows NSR @69 bpm, No STEMI. 11/09/18 12:10 labs reviewed, largely unremarkable. UTI on labs. No CVAT informed pt to follow up w/ urologist regarding blood in the urine and UTI, she is agreeble. P: cT results 11/09/18 14:25 CT A/P unremarkable CTH on my read unremarkable walking well w/ stable gait, likely postural dizziness as pt wakes up and stand up too quickly and has dizziness pt denies any current dizziness neuro exam remains unremarkable, clear for d/c home w/ follow up and return indications, pt agreeable to plan. - EKG Interpretation Interpreted by ED Physician: Yes Type: 12 lead EKG - Scribe Statement The provider has reviewed the documentation as recorded by the Scribe Keily Ortega. All medical record entries made by the Scribe were at my direction and personally dictated by me. I have reviewed the chart and agree that the record accurately reflects my personal performance of the history, physical exam, medical decision making, and the department course for this patient. I have also personally directed, reviewed, and agree with the discharge instructions and disposition. Disposition/Present on Arrival - Present on Arrival Any Indicators Present on Arrival: No History of DVT/PE: No History of Uncontrolled Diabetes: No Urinary Catheter: No History of Decub. Ulcer: No History Surgical Site Infection Following: None - Disposition Have Diagnosis and Disposition been Completed?: Yes Diagnosis: UTI (urinary tract infection), Dizzy Disposition: HOME/ ROUTINE Disposition Time: 12:14 Patient Problems: Current Active Problems Problem Status Onset UTI (urinary tract infection) Acute Dizzy Acute Condition: STABLE Discharge Instructions (ExitCare): Urinary Tract Infection, Adult (DC), Dizziness, Nonvertigo, (DC) Print Language: MALTESE Additional Instructions: JULIA FONSECA, thank you for letting us take care of you today. Your provider was Naseem Chatterjee and you were treated for headache / dizziness. The emergency medical care you received today was directed at your acute symptoms. If you were prescribed any medication, please fill it and take as directed. It may take several days for your symptoms to resolve. Return to the Emergency Department if your symptoms worsen, do not improve, or if you have any other problems. Please contact your doctor or call one of the physicians/clinics you have been referred to that are listed on the Patient Visit Information form that is included in your discharge packet. Bring any paperwork you were given at discharge with you along with any medications you are taking to your follow up visit. Our treatment cannot replace ongoing medical care by a primary care provider outside of the emergency department. Thank you for allowing the [facility] team to be part of your care today. If you had an X-Ray or CT scan: A Radiologist will review the ED reading if any change in treatment is needed we will contact you. If you had a blood, urine, or wound culture: It will take several days for the results, if any change in treatment is needed we will contact you. If you had an STI test: It will take 48 hours for the results. Please call after 1 week if you have not heard back. Prescriptions: Nitrofurantoin Macrocrystals [Macrobid] 100 mg PO BID 5 Days #10 cap Referrals: [facility] [Outside] - Follow up with primary [facility] [Outside] - Follow up with primary [facility] [Outside] - Follow up with primary Freeman Villagomez MD [Staff Provider] - Follow up with primary Usama Ariza MD [Family Provider] - Follow up with primary He Rain MD [Staff Provider] - Follow up with primary Brando Márquez MD [Staff Provider] - Follow up with primary
[2018-11-09] MEDS ORDERED: Sodium Chloride 0.9% 1,000 ML IV SCH (09:30)
[2018-11-09 09:47] LABS: HEMOGLOBIN 11.6 g/dL (12.0-16.0); MEAN CELL VOLUME 82.7 fl (80.0-105.0); MEAN CORPUSCULAR HEMOGLOBIN 26.4 pg (25.0-35.0); MEAN CORPUSCULAR HGB CONC 31.9 g/dl (31.0-37.0); MEAN PLATELET VOLUME 9.6 fl (7.0-11.0); RBC 4.4 10^6/uL (3.5-6.1); RED CELL DISTRIBUTION WIDTH 13.6 % (11.5-14.5); WHITE BLOOD COUNT 7.9 10^3/uL (4.5-11.0)
[2018-11-09 09:55] LABS: ALB/GLOB RATIO 1.3 (1.1-1.8); ALT/SGPT 24 U/L (7-56); AST/SGOT 23 U/L (14-36); BLOOD UREA NITROGEN 14 mg/dL (7-21); CALCIUM 8.9 mg/dL (8.4-10.5); GFR NON-AFRICAN AMERICAN > 60
[2018-11-09 10:06] LABS: TROPONIN I < 0.01 ng/mL
[2018-11-09 10:39] LABS: URINE BILIRUBIN NEGATIVE (NEGATIVE); URINE BLOOD NEGATIVE (NEGATIVE); URINE GLUCOSE (UA) NEGATIVE (NEGATIVE); URINE LEUKOCYTE ESTERASE SMALL Leu/uL (NEGATIVE); URINE PROTEIN NEGATIVE mg/dL (<30 mg/dL); URINE UROBILINOGEN 0.2 E.U./dL (<1 E.U./dL)
[2018-11-09 10:42] LABS: URINE APPEARANCE CLEAR (CLEAR); URINE COLOR YELLOW (YELLOW)
[2018-11-09 10:53] LABS: URINE BACTERIA SMALL /hpf
--- NOTE | 2018-11-09 13:59 | CT ---
Date of service: 11/09/2018 PROCEDURE: CT Abdomen and Pelvis with contrast HISTORY: suprapubic pain COMPARISON: None. TECHNIQUE: Contrast dose: Radiation dose: Total exam DLP = 1037.01 mGy-cm. This CT exam was performed using one or more of the following dose reduction techniques: Automated exposure control, adjustment of the mA and/or kV according to patient size, and/or use of iterative reconstruction technique. FINDINGS: LOWER THORAX: Unremarkable. LIVER: Unremarkable. No gross lesion or ductal dilatation. GALLBLADDER AND BILE DUCTS: Unremarkable. PANCREAS: Unremarkable. No gross lesion or ductal dilatation. SPLEEN: Unremarkable. ADRENALS: Unremarkable. No mass. KIDNEYS AND URETERS: Unremarkable. No hydronephrosis. No solid mass. VASCULATURE: Unremarkable. No aortic aneurysm. No aortic atherosclerotic calcification or mural plaque present. BOWEL: Unremarkable. No obstruction. No gross mural thickening. APPENDIX: Normal appendix. PERITONEUM: Unremarkable. No free fluid. No free air. LYMPH NODES: Unremarkable. No enlarged lymph nodes. BLADDER: Unremarkable. REPRODUCTIVE: Unremarkable. BONES: No acute fracture. OTHER FINDINGS: None. IMPRESSION: No acute intra-abdominal findings
[2018-11-09 14:48] VITALS: BP 120/50; PULSE 72
--- NOTE | 2018-11-09 17:55 | CT ---
Date of service: 11/09/2018 PROCEDURE: CT HEAD WITHOUT CONTRAST. HISTORY: enrique COMPARISON: None available. TECHNIQUE: Axial computed tomography images were obtained through the head/brain without intravenous contrast. Radiation dose: Total exam DLP = 921.63 mGy-cm. This CT exam was performed using one or more of the following dose reduction techniques: Automated exposure control, adjustment of the mA and/or kV according to patient size, and/or use of iterative reconstruction technique. FINDINGS: HEMORRHAGE: No intracranial hemorrhage. BRAIN: Diffuse atrophy with prominence of the ventricles and sulci noted. No mass effect or edema. 5 mm right basal ganglia calcification. The euceda-white matter differentiation appears intact. Please note that MRI with diffusion imaging is more sensitive in the detection of acute ischemic event. VENTRICLES: No hydrocephalus. CALVARIUM: Unremarkable. PARANASAL SINUSES: Unremarkable as visualized. No significant inflammatory changes. MASTOID AIR CELLS: Unremarkable as visualized. No inflammatory changes. OTHER FINDINGS: None. IMPRESSION: No acute intracranial pathology identified. Findings as above.
--- NOTE | 2018-11-09 21:36 | CARD ---
APPROVED REPORT Date of service: 11/09/2018 EKG Measurement Heart [id number] <Conclusion> Normal sinus rhythm Normal ECG
== END 2018-11-09 14:55 | disposition home or self-care (01) ==
LOC: ED 08:53
DX: N39.0 Urinary tract infection, site not specified (principal); R42 Dizziness and giddiness; I10 Essential (primary) hypertension; E11.9 Type 2 diabetes mellitus without complications; E78.00 Pure hypercholesterolemia, unspecified
CPT/HCPCS: 70450; 74177; 80053; 81001; 84484; 85027; 87086; 87181; 87206; 93005; 96374; 99285; J2765; J7030; Q9967